=== PATIENT | female | born 1965 | race Caucasian/White ===

== ENCOUNTER → 2016-05-11 | Outpatient (CLI) | payer MEDICARE, OTHER ==
--- NOTE | 2016-05-11 22:16 | MR ---
EXAMINATION TYPE: MR tspgifty/lspine wo con DATE OF EXAM: 05/11/2016 9:24 PM COMPARISON: NONE HISTORY: Post laminectomy syndrome, multiple back surgeries, pt has arachnoiditis; Pt states last MRI lumbar was 2013 at [place], states no priors on thoracic, this pain she is now experiencing is new and is in thoracic area TECHNIQUE: Multiplanar, multisequence imaging of thoracic spine is performed without contrast FINDINGS: T-SPINE: Spinal cord shows normal course, caliber, and signal as it courses the thoracic spine. Vertebral bod y heights and alignment are satisfactory. Disc space heights are maintained. No significant posterio r disc herniations are present on sagittal images. Small posterior disc herniations are seen at sever al levels in the cervical spine mildly effacing anterior thecal sac on counting sagittal sequence. Moisés ne marrow signal intensity is maintained. No significant spurring is noted. Review of the axial images at T8-T9 level shows left paracentral disc protrusion effacing anterolater al thecal sac and axial image 14, bilateral neural foramina remain patent. Remainder axial images are felt within normal limits. IMPRESSION: Small posterior disc herniation T8-T9 level mildly effaces anterior thecal sac. L-SPINE: FINDINGS: Sagittal images of the lumbar spine show vertebral body heights and alignment to appear sat isfactory. There is artifact from disc material L4-L5 and L5-S1 levels. There is artifact from central processing tech ior fusion hardware at the left L4-L5 and the right L4-S1 levels. There is multilevel disc desiccatio n above this. There is posterior disc herniation L2-L3 level effacing anterior thecal sac. Vertebral body heights and disc space heights above level of surgery are fairly well-maintained. The conus med ullaris is normal in position and signal ending at superior L1 vertebral body level. There is posteri or decompression with spinal canal prominence in the lower lumbar spine with thin septation or pseudo meningocele appearance identified presumed related to history of arachnoiditis. The bone marrow signa l intensity is within normal limits. Axial images show the T12-L1 and L1-L2 levels to appear within normal limits. Axial images at L2-L3 level show mild broad disc bulge with more prominent broad-based right paracent ral disc protrusion effacing anterior thecal sac on axial image 30. Bilateral neural foramina remain patent. There is bilateral laminectomy defect with spinous process resection at this level identified . Axial images at L3-L4 level show artifact from posterior fusion hardware. There is mild facet arthrop athy effacing the posterior lateral thecal sac bilaterally. Bilateral neural foramina remain patent. Axial images at L4-L5 level show successful posterior decompression surgery. There is artifact from f usion hardware is seen. Bilateral neural foramina are felt patent. Spinal canal prominence is noted. Axial images at L5-S1 level show artifact from right-sided fusion hardware and disc material. Spinal canal is preserved. Bilateral neural foramina are felt patent. IMPRESSION: Postsurgical changes lower lumbar spine with satisfactory alignment seen. Posterior decom pression L2-L3 level is seen. Most prominent disc herniation is noted at this level. Other findings a re noted as detailed above.
== END | disposition home or self-care (01) ==
LOC: RADMRIMAIN 20:18
PROVIDERS: ATTEND Neurological Surgery
DX: M51.26 Other intervertebral disc displacement, lumbar region (principal); M51.24 Other intervertebral disc displacement, thoracic region; Z98.890 Other specified postprocedural states
CPT/HCPCS: 72146; 72148

== ENCOUNTER 2016-10-06 00:05 | Emergency (ER) | payer MEDICARE, OTHER ==
[2016-10-06 00:12] VITALS: BP 134/95; PULSE 100; RESP 18; TEMP 97.4
[2016-10-06] MEDS ORDERED: KETOROLAC 60 MG/2 ML VIAL IM STA (00:20)
--- NOTE | 2016-10-06 00:20 | ED ---
General Adult HPI - General Chief complaint: Extremity Injury, Lower Stated complaint: ankle pain Time Seen by Provider: 10/06/16 00:10 Source: patient, RN notes reviewed Mode of arrival: ambulatory Limitations: no limitations - History of Present Illness Initial comments: This is a 51-year-old female who presents emergency Department complaining of right lateral ankle pain. Patient states the area is swollen. Patient states she could've sprained it and not noted. She has a new pain pump in for chronic pain. Patient states she doesn't recall doing anything but again she states that often she doesn't feel too much pain because of the new pain pump. Patient denies any fevers patient denies any warmth to the area. Patient denies any cuts or abrasions or lacerations. - Related Data Home Medications Medication Instructions Recorded Confirmed Diazepam [Valium] 5 mg PO TID PRN 08/29/13 10/06/16 Levothyroxine Sodium [Synthroid] 50 mcg PO DAILY 08/29/13 10/06/16 Pain Pump 1 applicate INJ DAILY 08/29/13 10/06/16 oxyCODONE HCL/ACETAMINOPHEN 1 tab PO Q4H PRN 08/29/13 10/06/16 [Percocet 10-325 mg] Allergies Allergy/AdvReac Type Severity Reaction Status Date / Time morphine Allergy Itching Verified 08/29/13 15:20 pregabalin [From Lyrica] Allergy Swelling Verified 10/06/16 00:12 Review of Systems ROS Statement: Those systems with pertinent positive or pertinent negative responses have been documented in the HPI. ROS Other: All systems not noted in ROS Statement are negative. Past Medical History Past Medical History: Cancer Additional Past Medical History / Comment(s): back pain, hodgkin's lymphoma, uterine cancer History of Any Multi-Drug Resistant Organisms: None Reported Past Surgical History: Back Surgery Additional Past Surgical History / Comment(s): splenectomy, implanted pain pump Past Psychological History: Anxiety, Depression Smoking Status: Current every day smoker Past Alcohol Use History: None Reported Past Drug Use History: None Reported General Exam - General Exam Comments Initial Comments: GENERAL Patient is well-developed and well-nourished. Patient is in mild distress. EYES Patient's pupils are equal and round. Extraocular motion is intact SKIN Unremarkable NEURO The patient is alert and oriented 3 PYSCH Patient has normal interpersonal interactions. MUSCULOSKELETAL Right lateral ankle is swollen and tender to palpation Limitations: no limitations Course Vital Signs 10/06/16 00:08 Temperature 97.4 F L Pulse Rate 100 Respiratory 18 Rate Blood Pressure 134/95 O2 Sat by Pulse 97 Oximetry Medical Decision Making - Medical Decision Making X-ray of the ankle shows an shows no acute fracture. Disposition Clinical Impression: Ankle sprain Disposition: HOME SELF-CARE Instructions: Ankle Sprain (ED) Referrals: Chau Hernandez MD [Primary Care Provider] - 1-2 days Time of Disposition: 00:39
--- NOTE | 2016-10-06 01:15 | XR ---
Exam: XR RIGHT ANKLE History: Right lateral ankle swelling. Pain. No injury. Comparison: None provided. Technique: 3 views. Findings: No acute displaced fracture or dislocation identified. No significant arthritic or erosive changes. No soft tissue calcification. Probable 8mm bone island at the distal tibia. Suggestion of lateral malleolar soft tissue swelling. Impression: Lateral malleolar soft tissue swelling without acute process identified. Consider MRI if symptoms persist.
== END 2016-10-06 00:48 | disposition home or self-care (01) ==
LOC: EC 00:05
DX: S93.401A Sprain of unspecified ligament of right ankle, initial encounter (principal); G89.29 Other chronic pain; F17.200 Nicotine dependence, unspecified, uncomplicated; Z79.899 Other long term (current) drug therapy; Z88.5 Allergy status to narcotic agent; Z88.8 Allergy status to other drugs, medicaments and biological substances; X58.XXXA Exposure to other specified factors, initial encounter
CPT/HCPCS: 73610; 99283; 96372; J1885